=== PATIENT | female | born 1945 | race Hispanic/Latino ===

== ENCOUNTER 2017-07-30 06:23 | Day surgery (SDC) | payer OTHER ==
[~2017-07-30] VITALS: Ht 147.3 cm; Wt 60.1 kg
[~2017-07-30 06:23] MED LIST: ALEN35TA31 PO; ASPI-555 PO; LEVO25TA54 PO; MULT-1290 PO; OMEG100T PO; PRAV40TA3 PO; SODIUM CHLORIDE 0.9% 1000ML 1,000 ML IV ONE
[2017-07-30 06:42] VITALS: BP 142/64
[2017-07-30 07:52] VITALS: BP 72/33
[2017-08-26] MEDS ORDERED: IBUP-2353 PO (12:56)
== END 2017-07-30 08:35 | disposition home or self-care (01) ==
LOC: ENDO 06:23 → DAH 06:23 → ENDO 08:35
PROVIDERS: ATTEND Internal Medicine Gastroenterology
DX: Z09 Encounter for follow-up examination after completed treatment for conditions other than malignant neoplasm (principal); Z86.010 Personal history of colon polyps; E78.5 Hyperlipidemia, unspecified; E03.9 Hypothyroidism, unspecified; Z98.890 Other specified postprocedural states; Z79.899 Other long term (current) drug therapy; Z88.8 Allergy status to other drugs, medicaments and biological substances
CPT/HCPCS: 45378; A4606; J7030

== ENCOUNTER 2017-08-27 06:39 | Day surgery (SDC) | payer OTHER ==
[~2017-08-27] VITALS: Ht 149.9 cm; Wt 60.1 kg
[~2017-08-27 06:39] MED LIST changes: +IBUP-2353 PO; -SODIUM CHLORIDE 0.9% 1000ML 1,000 ML IV ONE
[2017-08-27] MEDS ORDERED: SODIUM CHLORIDE 0.9% 1000ML 1,000 ML IV ONE (06:41)
[2017-08-27 06:55] VITALS: BP 121/59
[2017-08-27] MEDS ORDERED: PROPOFOL 10 MG/ML 20ML VIAL IV ONE ×2 (08:21)
[2017-08-27 08:50] VITALS: BP 110/42
== END 2017-08-27 09:18 | disposition home or self-care (01) ==
LOC: ENDO 06:39 → DAH 06:39 → ENDO 09:18
PROVIDERS: ATTEND Internal Medicine Gastroenterology
DX: Z09 Encounter for follow-up examination after completed treatment for conditions other than malignant neoplasm (principal); D12.2 Benign neoplasm of ascending colon; D12.5 Benign neoplasm of sigmoid colon; K57.30 Diverticulosis of large intestine without perforation or abscess without bleeding; E03.9 Hypothyroidism, unspecified; E78.5 Hyperlipidemia, unspecified; Z98.890 Other specified postprocedural states; Z79.899 Other long term (current) drug therapy; Z79.82 Long term (current) use of aspirin; Z86.010 Personal history of colon polyps
CPT/HCPCS: 88305; A4606; G0105; J2704 ×2; J7030

== ENCOUNTER → 2018-05-15 | Outpatient (CLI) | payer OTHER ==
[~2018-05-15] MED LIST changes: -IBUP-2353 PO; -OMEG100T PO
== END | disposition home or self-care (01) ==
LOC: RAH 08:19
PROVIDERS: ATTEND Family Medicine
DX: Z12.31 Encounter for screening mammogram for malignant neoplasm of breast (principal)
CPT/HCPCS: 77067

== ENCOUNTER → 2019-05-17 | Outpatient (CLI) | payer OTHER ==
[~2019-05-17] MED LIST changes: +ALEN35TA23 PO; -ALEN35TA31 PO
== END | disposition home or self-care (01) ==
LOC: RAH 08:32
PROVIDERS: ATTEND Family Medicine
DX: Z12.31 Encounter for screening mammogram for malignant neoplasm of breast (principal)
CPT/HCPCS: 77067

== ENCOUNTER → 2020-05-17 | Outpatient (CLI) | payer OTHER ==
[~2020-05-17] MED LIST changes: -ALEN35TA23 PO; +ALEN35TA51 PO; -ASPI-555 PO; +ASPI-556 PO
== END | disposition home or self-care (01) ==
LOC: RAH 09:58
PROVIDERS: ATTEND Family Medicine
DX: Z12.31 Encounter for screening mammogram for malignant neoplasm of breast (principal)
CPT/HCPCS: 77067

== ENCOUNTER → 2022-05-20 | Outpatient (CLI) | payer OTHER ==
[~2022-05-20] MED LIST changes: -ALEN35TA51 PO; +ALEN35TA53 PO
== END | disposition home or self-care (01) ==
LOC: RAH 07:47
PROVIDERS: ATTEND Internal Medicine
DX: Z12.31 Encounter for screening mammogram for malignant neoplasm of breast (principal)
CPT/HCPCS: 77067

== ENCOUNTER → 2023-05-21 | Outpatient (CLI) | payer OTHER | END | disposition home or self-care (01) | LOC: RAH 09:30 | PROVIDERS: ATTEND Family Medicine | DX: Z12.31 Encounter for screening mammogram for malignant neoplasm of breast (principal) | CPT/HCPCS: 77067 ==